=== PATIENT | female | born 1995 | race Caucasian/White ===

== ENCOUNTER 2024-08-01 15:18 | Emergency (ER) | payer SELFPAY ==
[2024-08-01 15:19] VITALS: TEMP 36.7
--- NOTE | 2024-08-01 15:48 | EX.ED.DYSGE1 ---
HPI <COLIN Rockwell - Last Filed: 08/01/24 16:40> History of Present Illness Chief Complaint: Allergic Reaction Narrative Narrative: 29-year-old [place] female presents with an allergic reaction. She had jose yesterday around noon and about 2 hours later developed itchy hives across her on her neck arms and legs. She took Benadryl and it resolved but then the hives minorly returned again in the evening so she took more. She states this afternoon she developed hives again and felt short of breath prompting her to take another Benadryl and call the paramedics. She had not eaten any more jose. She had no chest pain, nausea or vomiting, abdominal pain, or diarrhea. No facial swelling or difficulty swallowing. She states on June 15, 2024 she had deer meat and had hives. Other than that she had no history of allergic reactions or anaphylaxis. She takes [id number] vitamins. She does not have a primary care doctor. PFS <COLIN Rockwell - Last Filed: 08/01/24 16:40> [facility] Home Medications ?Medication ?Instructions ?Recorded ?Last Taken ?Type ondansetron 4 mg disintegrating 4 mg PO Q8H PRN PRN Nausea #3 tabs 06/27/13 Unknown Rx tablet epinephrine 0.3 mg/0.3 mL 0.3 mg (0.3 mL) IM X1 PRN 08/01/24 Unknown Rx injection, auto-injector (EpiPen) anaphylaxis 1 day #2 ea famotidine 20 mg tablet (Pepcid) 20 mg PO BID 5 days #10 tabs 08/01/24 Unknown Rx prednisone 20 mg tablet 40 mg (2 x 20 mg) PO DAILY 5 days 08/01/24 Unknown Rx #10 tabs Allergy/AdvReac Type Severity Reaction Status Date / Time No Known Allergies Allergy Verified 08/01/24 15:19 Social History Smoking Status: Never smoker ROS <COLIN Rockwell Last Filed: 08/01/24 16:40> ROS ED ROS Narrative Constitutional: Negative for fever, chills, malaise. CVS: Negative for palpitations, chest pain. Respiratory: Positive for shortness of breath GI: Negative for abdominal pain, nausea, vomiting, diarrhea Skin: Positive for hives. EXAM <COLIN Rockwell - Last Filed: 08/01/24 16:40> Physical Exam Narrative Exam Narrative: CONST: Patient sitting in no acute distress. EYES: Normal inspection. ENT: Normal inspection, no angioedema, no drooling or stridor, moist mucous membranes. NECK: Normal inspection. RESP: No respiratory distress, CTAB. CVS: Regular rate and rhythm, no murmur, no gallop. ABD: Soft and nontender, no guarding or rebound, nondistended. SKIN: Color normal, faint resolving urticaria on both forearms and both feet. EXTREMITIES: Normal appearance, no pedal edema. NEURO: Alert and answering questions appropriately. PSYCH: Normal affect. Const Vital Signs: 08/01/24 15:19 08/01/24 16:18 Temperature 98.0 F 97.8 F Temperature Source Oral Pulse Rate 64 Respiratory Rate 18 Blood Pressure 121/78 H Blood Pressure Mean 92 Pulse Ox 99 Oxygen Delivery Method Room Air <Dr. Darci Ugalde DO - Last Filed: 08/02/24 01:52> Physical Exam Const Vital Signs: 08/01/24 15:19 08/01/24 16:18 Temperature 98.0 F 97.8 F Temperature Source Oral Pulse Rate 64 Respiratory Rate 18 Blood Pressure 121/78 H Blood Pressure Mean 92 Pulse Ox 99 Oxygen Delivery Method Room Air MDM <COLIN Rockwell - Last Filed: 08/01/24 16:40> [facility] MDM Narrative Medical decision making narrative: History gathered from: Patient, Patient presented with allergic reaction she thinks is from eating jose yesterday. Today she had recurrent hives and felt short of breath. She was given IV Benadryl by EMS and arrives awake and alert in no distress. She has stable vital signs. She has very faint resolving hives on her forearm and feet. There is no angioedema, no respiratory distress, clear lung sounds. No GI symptoms. There is no indication for epinephrine because she does not have anaphylaxis. Will she was given p.o. prednisone and Pepcid as well as prescription of these for home x 5 days. She was instructed to continue Benadryl as needed. Patient was very worried about going home so I prescribed an EpiPen to have on hand as needed I discussed return precautions. She was discharged in stable condition. <Dr. Darci Ugalde, DO - Last Filed: 08/02/24 01:52> [facility] MDM Narrative Medical decision making narrative: History gathered from: Patient, Patient presented with allergic reaction she thinks is from eating jose yesterday. Today she had recurrent hives and felt short of breath. She was given IV Benadryl by EMS and arrives awake and alert in no distress. She has stable vital signs. She has very faint resolving hives on her forearm and feet. There is no angioedema, no respiratory distress, clear lung sounds. No GI symptoms. There is no indication for epinephrine because she does not have anaphylaxis. Will she was given p.o. prednisone and Pepcid as well as prescription of these for home x 5 days. She was instructed to continue Benadryl as needed. Patient was very worried about going home so I prescribed an EpiPen to have on hand as needed I discussed return precautions. She was discharged in stable condition. Supervisory Physician Note Patient was seen and examined with the Advanced Practice Provider. Nursing notes and vital signs have been reviewed. Pertinent old records have been reviewed. I agree with the essential elements of the RAMA's history, physical exam, assessment, and plan. The differential diagnosis and management options were discussed with the RAMA. I participated in determining and agree with the management, procedures, final impression and disposition as documented. See changes noted by me. Please see addendum or separate note for any additional details. Gen: A&O x3, NAD Head: Normocephalic, atraumatic Eyes: No sclera icterus, conjunctiva clear, PERRL, EOMI ENT: Moist mucous membranes, tolerating secretions, no angioedema, posterior oropharynx without erythema or swelling, no tongue enlargement Neck: Trachea midline, No JVD, no swelling, full range of motion CV: RRR, no murmurs, no peripheral edema Resp: Lungs CTA BL, no w/r/c, no stridor GI: Abd soft, non-distended, non-tender, no r/r/g Musc: Full ROM, no deformity Skin: Warm, urticaria resolved on my exam Neuro: Alert, oriented, grossly intact, sensation intact Psych: Cooperative, appropriate mood and affect Impression: 1. Suspected allergic reaction 2. Urticaria Discharge Plan Triage Chief Complaint: Allergic Reaction ED Midlevel Provider: Malathi Galindo ED Provider: Darci Ugalde Dx/Rx/DC Orders Clinical Impression: Allergic reaction Instructions: Allergy Overview Prescriptions: New famotidine [Pepcid] 20 mg tablet 20 mg PO BID 5 Days Qty: 10 0RF prednisone 20 mg tablet 40 mg PO DAILY 5 Days Qty: 10 0RF epinephrine [EpiPen] 0.3 mg/0.3 mL auto-injector 0.3 mg IM X1 PRN (Reason: anaphylaxis) 1 Days Qty: 2 0RF Rx Instructions: for 2 doses No Action ondansetron 4 MG tablet 4 mg PO Q8H PRN PRN (Reason: Nausea) Qty: 3 0RF Primary Care Provider: Care Physician,No Primary Referrals: Surinder Webb DO [Non-Staff] - Activity Restrictions/Additional Instructions: You can take Benadryl 25 or 50 mg every 6 hours as needed. Use the EpiPen if you have severe allergic reaction including facial lip or tongue swelling or difficulty breathing and if you have to use it you still need to call the paramedics and come to the emergency room. Print Language: Irish Disposition Disposition: Home, Self Care Discharge Date/Time: 08/01/24 16:33
[2024-08-01] MEDS: predniSONE 20 MG Tablet 40 MG PO (15:49)
[2024-08-01] MEDS: Famotidine 20 MG Tablet PO (15:49)
[2024-08-01 16:18] VITALS: BP 121/78; PULSE 64; RESP 18; TEMP 36.6; O2SAT 99; BMI 20.3
== END 2024-08-01 16:33 | disposition home or self-care (01) ==
LOC: ED 16:03
PROVIDERS: Emergency Provider Surgery; Visit Provider Surgery
DX: T78.40XA Allergy, unspecified, initial encounter (principal); X58.XXXA Exposure to other specified factors, initial encounter
CPT/HCPCS: 99285

== ENCOUNTER → 2024-08-21 | Outpatient (CLI) | payer SELFPAY ==
[2024-08-26 11:08] LABS: Beef <0.10 kU/L (Class 0); Clam <0.10 kU/L (Class 0); Codfish <0.10 kU/L (Class 0); Corn <0.10 kU/L (Class 0); Egg, White <0.10 kU/L (Class 0); Milk (Cow) <0.10 kU/L (Class 0); Peanut 0.13 kU/L (Class 0/I); Pork <0.10 kU/L (Class 0); SCALLOP <0.10 kU/L (Class 0); SESAME SEED <0.10 kU/L (Class 0); Shrimp <0.10 kU/L (Class 0); Soybean <0.10 kU/L (Class 0); Walnut, (Food) <0.10 kU/L (Class 0); Wheat <0.10 kU/L (Class 0)
== END | disposition home or self-care (01) ==
PROVIDERS: Referring Provider Otolaryngology; Visit Provider Otolaryngology
DX: T78.40XA Allergy, unspecified, initial encounter (principal); X58.XXXA Exposure to other specified factors, initial encounter
CPT/HCPCS: 36415; 86003